=== PATIENT | male | born 1950 | race African-American/Black ===

== ENCOUNTER 2019-04-29 13:37 | Inpatient (IN) ==
[2019-04-29] MEDS ORDERED: ACETAMINOPHEN 325 MG TABLET PO PRN (16:06)
[2019-04-29] MEDS ORDERED: ONDANSETRON 4 MG/2 ML VIAL IV PRN (16:06)
[2019-04-29] MEDS ORDERED: ALBUTEROL/IPRATROPIUM 3 ML NEB RESP TX PRN (16:11)
[2019-04-29] MEDS ORDERED: tiZANidine 4 MG TABLET PO PRN (17:13)
[2019-04-29 17:33] LABS: Apearance,Urine CLEAR (Clear); Bacteria,Urine Occasional /HPF (Few); Bilirubin,Urine Negative (Negative); Blood, Urine Negative (Negative); Glucose,Urine (UA) Negative (Negative); Hyaline Casts,Urine 5 /LPF (0-3); Ketones,Urine 20 mg/dL (Negative); Mucus,Urine Occasional /LPF (Occasional); Nitrite,Urine Negative (Negative); Protein,Urine 30 MG/DL; RBC,Urine 1 /HPF (0-4); Squamous Epithelial Cell,Urine Occasional /HPF (0-10); Urine Color Yellow (Yellow); Urine Specific Gravity 1.021 (1.001-1.035); Urine Urobilinogen < 2.0 EU/DL (0.2-1.0); WBC,Urine 1 /HPF (0-6)
[2019-04-29 18:12] LABS: Basophils % 0.2 % (0.0-0.8); Eosinophils % 0.2 % (0.00-10.9); Hemoglobin 7.6 GM/DL (14.0-18.0); Immature Granulocytes % 0.8 %; Lymphocytes # 0.4 10*3/uL (1.4-4.0); Lymphocytes % 2.9 % (21.2-54.2); Mean Corpuscular HGB Conc 29.2 GM/DL (32-36); Mean Corpuscular Volume 77.6 FL (87-102); Mean Platelet Volume 11.6 FL (9.6-12.0); Monocytes % 6.8 % (1.7-12.7); Neutrophils % 89.1 % (38.7-73.9); Platelet Count 494 T/CUMM (130-400); Red Blood Count 3.35 MC/CUMM (3.8-5.5); Red Cell Distribution Width 17.6 % (9.3-17.3); White Blood Count 13.3 T/CUMM (4-12)
[2019-04-29 18:14] LABS: Bilirubin,Total 0.4 MG/DL (0.2-1.0); Calcium 8.1 MG/DL (8.5-10.1); Total Protein 5.9 G/DL (6.4-8.3)
[2019-04-29 18:20] LABS: Elliptocytes Few; Helmet Cells 1+; Hypochromasia 2+; Lymphocytes 1 % (20-55); Microcytosis Slight; Platelet Estimate Increased; Segmented Neutrophils 95 % (50-85); Target Cells Few
[2019-04-29 18:22] LABS: Total Cells Counted 100
[2019-04-29] MEDS: CYPROHEPTADINE 4 MG TABLET PO SCH (20:16)
[2019-04-29] MEDS: hydrOXYzine HCL 10 MG TABLET PO SCH (20:16)
[2019-04-30 05:48] LABS: Basophils # 0.1 10*3/uL (0.0-0.2); Basophils % 0.4 % (0.0-0.8); Eosinophils # 0.1 10*3/uL (0.0-0.87); Eosinophils % 0.7 % (0.00-10.9); Hematocrit 30.1 VOL% (42.0-52.0); Hemoglobin 8.5 GM/DL (14.0-18.0); Immature Granulocytes % 1.1 %; Immature Granulocytes Absolute 0.15 #; Lymphocytes # 0.7 10*3/uL (1.4-4.0); Lymphocytes % 5.2 % (21.2-54.2); Mean Corpuscular HGB Conc 28.2 GM/DL (32-36); Mean Platelet Volume 10.9 FL (9.6-12.0); Neutrophils % 84.6 % (38.7-73.9); Platelet Count 540 T/CUMM (130-400); Red Blood Count 3.81 MC/CUMM (3.8-5.5); Red Cell Distribution Width 17.9 % (9.3-17.3); White Blood Count 13.8 T/CUMM (4-12)
[2019-04-30 05:53] LABS: Calcium 8.8 MG/DL (8.5-10.1); Osmolality,Calculated 277.7 MOS/KG (273-304); Risk Ratio 3.56; Thyroid Stimulating Hormone 1.34 uIU/ml (0.358-3.74); VLDL CHOLESTEROL 35.2 MG/DL
[2019-04-30 06:07] LABS: Anisocytosis 1+
[2019-04-30 06:08] LABS: Acanthocytes 1+; Hypochromasia 1+; Platelet Estimate Increased
[2019-04-30] MEDS: PANTOPRAZOLE 40 MG TABLET PO SCH (09:39)
[2019-04-30] MEDS: ATENOLOL 25 MG TABLET PO SCH (09:39)
[2019-04-30] MEDS: CYPROHEPTADINE 4 MG TABLET PO SCH ×3 (09:39→21:06)
[2019-04-30] MEDS: POLYETHYLENE GLYCOL POWDER 17 GM PACK PO SCH (09:41)
[2019-04-30] MEDS: methylPREDNISolone SOD SUC 40 MG/1 ML VIAL IV SCH ×2 (11:19→18:24)
[2019-04-30] MEDS: AZITHROMYCIN INJ 500 MG in SODIUM CHLORIDE 0.9% 250 ML IV SCH (14:31)
[2019-04-30] MEDS: cefTRIAXone 1,000 MG in SYRINGE 1 EACH IV SCH (14:31)
[2019-04-30] MEDS: hydrOXYzine HCL 10 MG TABLET PO SCH (21:05)
[2019-05-01] MEDS: methylPREDNISolone SOD SUC 40 MG/1 ML VIAL IV SCH ×3 (01:12→19:39)
[2019-05-01 05:17] LABS: Basophils % 0.1 % (0.0-0.8); Immature Granulocytes % 0.6 %; Immature Granulocytes Absolute 0.07 #; Lymphocytes # 0.3 10*3/uL (1.4-4.0); Lymphocytes % 2.7 % (21.2-54.2); Mean Corpuscular HGB Conc 28.6 GM/DL (32-36); Mean Corpuscular Volume 78.7 FL (87-102); Mean Platelet Volume 11.6 FL (9.6-12.0); Monocytes % 0.7 % (1.7-12.7); Neutrophils % 95.9 % (38.7-73.9); Platelet Count 534 T/CUMM (130-400); Red Blood Count 3.56 MC/CUMM (3.8-5.5); Red Cell Distribution Width 17.7 % (9.3-17.3); White Blood Count 11.1 T/CUMM (4-12)
[2019-05-01 05:35] LABS: Calcium 8.2 MG/DL (8.5-10.1)
[2019-05-01 06:00] LABS: Hypochromasia 1+; Lymphocytes 1 % (20-55); Ovalocytes Slight; Platelet Estimate Adequate; Segmented Neutrophils 97 % (50-85); Total Cells Counted 100
[2019-05-01] MEDS ORDERED: SODIUM PHOSPHATE ENEMA 133 ML BOTTLE RECTAL ONE (08:50)
[2019-05-01] MEDS: AZITHROMYCIN INJ 500 MG in SODIUM CHLORIDE 0.9% 250 ML IV SCH (09:48)
[2019-05-01] MEDS: CYPROHEPTADINE 4 MG TABLET PO SCH ×2 (09:49→19:39)
[2019-05-01] MEDS: PANTOPRAZOLE 40 MG TABLET PO SCH (09:49)
[2019-05-01] MEDS: ATENOLOL 25 MG TABLET PO SCH (09:49)
[2019-05-01] MEDS: POLYETHYLENE GLYCOL POWDER 17 GM PACK PO SCH (09:50)
[2019-05-01] MEDS: cefTRIAXone 1,000 MG in SYRINGE 1 EACH IV SCH (09:50)
[2019-05-01 12:22] VITALS: BP 118/67
[2019-05-02] MEDS ORDERED: AZITHROMYCIN 250 MG TABLET PO SCH (09:00)
== END 2019-05-01 14:40 | disposition hospice, home (50) | DRG 194 ==
LOC: N.4E → OBSVTOIN 14:44 → SUATTDRO 14:44
PROVIDERS: ADMIT Internal Medicine; ATTEND Family Medicine

== ENCOUNTER 2019-05-10 14:05 | Inpatient (IN) ==
[2019-05-10] MEDS ORDERED: SODIUM CHLORIDE 0.9% 1,000 ML IV STA ×2 (14:20→16:56)
[2019-05-10] MEDS ORDERED: ONDANSETRON 4 MG/2 ML VIAL IV STA (14:20)
[2019-05-10 17:06] LABS: Apearance,Urine CLEAR (Clear); Bilirubin,Urine Negative (Negative); Blood, Urine Negative (Negative); Glucose,Urine (UA) Negative (Negative); Hyaline Casts,Urine 3 /LPF (0-3); Ketones,Urine 20 mg/dL (Negative); Mucus,Urine Occasional /LPF (Occasional); Nitrite,Urine Negative (Negative); Protein,Urine 30 MG/DL; RBC,Urine 1 /HPF (0-4); Urine Color Yellow (Yellow); Urine Specific Gravity 1.019 (1.001-1.035); Urine Urobilinogen < 2.0 EU/DL (0.2-1.0); WBC,Urine 2 /HPF (0-6)
[2019-05-10 17:37] LABS: Basophils % 0.2 % (0.0-0.8); Eosinophils % 0.1 % (0.00-10.9); Hematocrit 30.4 VOL% (42.0-52.0); Immature Granulocytes % 0.9 %; Immature Granulocytes Absolute 0.12 #; Lymphocytes # 0.4 10*3/uL (1.4-4.0); Lymphocytes % 2.9 % (21.2-54.2); Mean Platelet Volume 10.9 FL (9.6-12.0); Monocytes % 5.3 % (1.7-12.7); Neutrophils % 90.6 % (38.7-73.9); Platelet Count 474 T/CUMM (130-400); Red Blood Count 3.85 MC/CUMM (3.8-5.5); Red Cell Distribution Width 19.1 % (9.3-17.3); White Blood Count 13.5 T/CUMM (4-12)
[2019-05-10 17:38] LABS: Hemoglobin 8.5 GM/DL (14.0-18.0)
[2019-05-10 17:46] LABS: Albumin 2.2 G/DL (3.4-5.0); Bilirubin,Total 0.6 MG/DL (0.2-1.0); Calcium 8.5 MG/DL (8.5-10.1); Osmolality,Calculated 265.2 MOS/KG (273-304); Total Protein 6.1 G/DL (6.4-8.3)
[2019-05-10 17:47] LABS: Lymphocytes 1 % (20-55); Segmented Neutrophils 96 % (50-85); Total Cells Counted 100
[2019-05-10 17:48] LABS: Hypochromasia Slight; Microcytosis Slight; Platelet Estimate Increased
[2019-05-10] MEDS ORDERED: MORPHINE 4 MG/1 ML VIAL IV PRN (19:51)
[2019-05-10] MEDS ORDERED: ACETAMINOPHEN 325 MG TABLET PO PRN (19:51)
[2019-05-10] MEDS ORDERED: ONDANSETRON 4 MG/2 ML VIAL IV PRN (19:51)
[2019-05-10] MEDS ORDERED: ALBUTEROL 2.5 MG/3 ML NEB RESP TX PRN ×2 (19:54→19:55)
[2019-05-10] MEDS ORDERED: tiZANidine 4 MG TABLET PO PRN (19:55)
[2019-05-10] MEDS ORDERED: DEXTROSE 10% 250 ML BAG IV PRN (20:17)
[2019-05-10] MEDS ORDERED: GLUCAGON 1 MG VIAL IM PRN (20:17)
[2019-05-10] MEDS: SODIUM CHLORIDE 0.9% 1,000 ML IV SCH (22:06)
[2019-05-10] MEDS: PIPERACILLIN/TAZOBACTAM 3,375 MG in SODIUM CHLORIDE 0.9% 100 ML IV SCH (22:07)
[2019-05-10] MEDS: hydrOXYzine HCL 10 MG TABLET PO SCH (22:08)
[2019-05-10] MEDS: CYPROHEPTADINE 4 MG TABLET PO SCH (22:08)
[2019-05-10] MEDS: BUDESONIDE/FORMOTEROL 80-4.5 INHALER 6.9 GM INH SCH (22:09)
[2019-05-10] MEDS: ENOXAPARIN 40 MG/0.4 ML SYRINGE SUBCUT SCH (22:09)
[2019-05-11 04:25] LABS: Basophils % 0.2 % (0.0-0.8); Eosinophils % 0.1 % (0.00-10.9); Hematocrit 26.2 VOL% (42.0-52.0); Hemoglobin 7.4 GM/DL (14.0-18.0); Immature Granulocytes Absolute 0.16 #; Lymphocytes # 0.4 10*3/uL (1.4-4.0); Lymphocytes % 2.8 % (21.2-54.2); Mean Corpuscular HGB Conc 28.2 GM/DL (32-36); Mean Corpuscular Volume 79.4 FL (87-102); Mean Platelet Volume 11.1 FL (9.6-12.0); Monocytes % 6.7 % (1.7-12.7); Neutrophils % 89.2 % (38.7-73.9); Platelet Count 460 T/CUMM (130-400); White Blood Count 15.6 T/CUMM (4-12)
[2019-05-11 04:46] LABS: Albumin 1.9 G/DL (3.4-5.0); Bilirubin,Total 0.4 MG/DL (0.2-1.0); Calcium 8.2 MG/DL (8.5-10.1); Osmolality,Calculated 263.2 MOS/KG (273-304); Risk Ratio 3.14; Total Protein 5.4 G/DL (6.4-8.3); VLDL CHOLESTEROL 32.8 MG/DL
[2019-05-11] MEDS: PIPERACILLIN/TAZOBACTAM 3,375 MG in SODIUM CHLORIDE 0.9% 100 ML IV SCH ×3 (04:57→21:19)
[2019-05-11] MEDS: SODIUM CHLORIDE 0.9% 1,000 ML IV SCH ×2 (06:24→17:59)
[2019-05-11 08:32] LABS: Lymphocytes 1 % (20-55); Microcytosis 1+; Ovalocytes Few; Schistocytes Slight; Segmented Neutrophils 97 % (50-85); Total Cells Counted 100
[2019-05-11 08:33] LABS: Hypochromasia 2+; Platelet Estimate Increased; Polychromasia Slight; Stomatocytes Few
[2019-05-11] MEDS: ATENOLOL 25 MG TABLET PO SCH (09:40)
[2019-05-11] MEDS: CYPROHEPTADINE 4 MG TABLET PO SCH ×3 (09:40→21:20)
[2019-05-11] MEDS: predniSONE 20 MG TABLET PO SCH (09:41)
[2019-05-11] MEDS: PANTOPRAZOLE 40 MG TABLET PO SCH (09:41)
[2019-05-11] MEDS: BUDESONIDE/FORMOTEROL 80-4.5 INHALER 6.9 GM INH SCH ×2 (09:41→21:20)
[2019-05-11] MEDS: ENOXAPARIN 40 MG/0.4 ML SYRINGE SUBCUT SCH (21:19)
[2019-05-11] MEDS: MEGESTROL 40 MG TABLET PO SCH (21:20)
[2019-05-11] MEDS: hydrOXYzine HCL 10 MG TABLET PO SCH (21:20)
[2019-05-12] MEDS: SODIUM CHLORIDE 0.9% 1,000 ML IV SCH ×2 (04:48→11:16)
[2019-05-12] MEDS: PIPERACILLIN/TAZOBACTAM 3,375 MG in SODIUM CHLORIDE 0.9% 100 ML IV SCH ×2 (04:48→11:16)
[2019-05-12] MEDS: BUDESONIDE/FORMOTEROL 80-4.5 INHALER 6.9 GM INH SCH (08:15)
[2019-05-12] MEDS: ATENOLOL 25 MG TABLET PO SCH (08:16)
[2019-05-12] MEDS: predniSONE 20 MG TABLET PO SCH (08:16)
[2019-05-12] MEDS: CYPROHEPTADINE 4 MG TABLET PO SCH (08:16)
[2019-05-12] MEDS: PANTOPRAZOLE 40 MG TABLET PO SCH (08:16)
[2019-05-12] MEDS: MEGESTROL 40 MG TABLET PO SCH (08:16)
[2019-05-12 12:47] VITALS: BP 119/67
== END 2019-05-12 13:15 | disposition hospice, home (50) | DRG 180 ==
LOC: EDUNIT# → EDBD → N.EDINP 14:05 → N.ED 14:05 → N.4E 19:01
PROVIDERS: ADMIT Internal Medicine; ATTEND Internal Medicine